=== PATIENT | female | born 1990 | race American Indian/Alaskan Native ===

== ENCOUNTER 2017-10-17 15:12 | Emergency (ER) | payer MEDICAID ==
[2017-10-17 15:24] VITALS: RESP 20
--- NOTE | 2017-10-17 16:13 | C.PDOC ---
History Of Present Illness <Minna Mcnulty - Last Filed: 10/17/17 16:29> <David Morales M - Last Filed: 10/17/17 20:30> HPI (As per boyfriend at bedside and Mother per phone conversation) Patient is a 27 year old with past medical history of anxiety, hypotension and alcohol abuse who was brought in to the ED by her boyfriend for alcohol intoxication. As per patient' s boyfriend and mother, patient has been abusing alcohol since her teenager years with drink of choice being Vodka and has been to multiple rehabilitations. Patient is currently in an outpatient program in [facility]. Patient was visiting her boyfriend from [facility] today via public transportation and was noted to be intoxicated with alcohol with unsteady gait. Patient denies any other complaints. (Minna Mcnulty) History Per: Other (As per boyfriend and Mother ) History/Exam Limitations: no limitations Onset/Duration Of Symptoms: Sudden Onset Current Symptoms Are (Timing): Still Present Severity: Moderate Pain Scale Rating Of: 0 <Minna Mcnulty - Last Filed: 10/17/17 16:29> <David Morales M - Last Filed: 10/17/17 20:30> Time Seen by Provider: 10/17/17 15:17 Chief Complaint (Nursing): Substance Abuse Past Medical History - Medical History PMH: Anxiety, Seizures Other PMH: Alcohol abuse Surgical History: No Surg Hx Family History: States: Unknown Family Hx - Social History Hx Alcohol Use: Yes (Daily) Hx Substance Use: No - Immunization History Hx Tetanus Toxoid Vaccination: No Hx Influenza Vaccination: No <Minna Mcnulty - Last Filed: 10/17/17 16:29> Vital Signs: Last Vital Signs Temp 97.3 F L 10/17/17 15:20 Pulse 79 10/17/17 15:20 Resp 20 10/17/17 15:20 BP 113/78 10/17/17 15:20 Pulse Ox 95 10/17/17 16:34 Review Of Systems Constitutional: Negative for: Fever, Chills, Weakness, Malaise Eyes: Negative for: Pain ENT: Negative for: Ear Pain, Ear Discharge Cardiovascular: Negative for: Chest Pain, Palpitations, Edema, Light Headedness Respiratory: Negative for: Cough, Shortness of Breath, SOB with Excertion, Wheezing, Other Gastrointestinal: Negative for: Nausea, Vomiting, Abdominal Pain, Diarrhea Genitourinary: Negative for: Dysuria, Frequency Neurological: Positive for: Incoordination (Alcohol intoxication), Other. Negative for: Seizures, Altered Mental Status, Dizziness Psych: Positive for: Anxiety <HamletLizet coronadoramesh Trish - Last Filed: 10/17/17 16:29> Physical Exam - Physical Exam Appears: No Acute Distress Skin: Normal Color Head: Atraumatic, Normacephalic Eye(s): bilateral: EOMI Teeth: Normal Dentition Cardiovascular: Rhythm Regular, No Murmur Respiratory: Normal Breath Sounds, No Decreased Breath Sounds, No Accessory Muscle Use, No Rales, No Rhonchi, No Stridor, No Wheezing Gastrointestinal/Abdominal: Normal Exam, Bowel Sounds, Soft, No Tenderness, No Organomegaly, No Mass Extremity: Normal ROM, No Tenderness, No Pedal Edema Extremity: Bilateral: Atraumatic Gait: Unsteady (Due to alcohol intoxication) <Minna Mcnulty E - Last Filed: 10/17/17 16:29> ED Course And Treatment O2 Sat by Pulse Oximetry: 95 <Minna Mcnulty - Last Filed: 10/17/17 16:29> Medical Decision Making <Minna Mcnulty - Last Filed: 10/17/17 16:29> <David Morales - Last Filed: 10/17/17 20:30> Medical Decision Making: On reassessment, patient is awake, alert, and ambulating with aid in a straight line without limitations. Boyfriend is present at this time and agrees with discharge plan and instructions. (David Morales) Disposition <Minna Mcnulty - Last Filed: 10/17/17 16:29> Counseled Patient/Family Regarding: Studies Performed, Diagnosis, Need For Followup - Disposition Disposition Time: 20:21 <David Morales - Last Filed: 10/17/17 20:30> - Disposition Disposition: HOME/ ROUTINE Condition: STABLE Additional Instructions: you are discharged to the care of your boyfriend follow up with your doctor in 2 days decrease your alcohol use return to hospital if symptoms worsens or progress Instructions: Alcohol Abuse and Alcoholism (DC) Forms: [facility] (Liberian), General Discharge Instructions - Clinical Impression Clinical Impression: Alcohol abuse
[2017-10-17 16:38] LABS: BARBITURATES, UR NEGATIVE (NEGATIVE); OPIATES, UR NEGATIVE (NEGATIVE); PHENCYCLIDINE, UR NEGATIVE (NEGATIVE)
[2017-10-17 16:39] LABS: BENZODIAZEPINES, UR POSITIVE (NEGATIVE)
[2017-10-17 16:49] LABS: SQUAMOUS EPITHIAL 1 /hpf (0-5); URINE BILIRUBIN NEGATIVE (NEGATIVE); URINE BLOOD NEGATIVE (NEGATIVE); URINE CLARITY Clear (Clear); URINE COLOR Straw (YELLOW); URINE GLUCOSE (UA) NORMAL (Normal); URINE LEUKOCYTE ESTERASE NEG Leu/uL (Negative); URINE PROTEIN NEGATIVE (NEGATIVE); URINE UROBILINOGEN NORMAL mg/dL (0.2-1.0)
[2017-10-17 20:34] VITALS: BP 96/61; PULSE 88; TEMP 97.8
[2017-10-17 20:54] VITALS: O2SAT 95
== END 2017-10-17 20:34 | disposition home or self-care (01) ==
LOC: C.ER 15:12
DX: F10.129 Alcohol abuse with intoxication, unspecified (principal); Y90.8 Blood alcohol level of 240 mg/100 ml or more